=== PATIENT | female | born 1990 | race Caucasian/White ===

== ENCOUNTER 2020-12-08 19:49 | Emergency (ER) | payer SELFPAY ==
[2020-12-08 19:53] VITALS: BP 133/36; PULSE 104; RESP 16; TEMP 36.6; O2SAT 99; BMI 27.2
[2020-12-08 19:59] VITALS: BP 116/72; PULSE 88; RESP 16; TEMP 36.6; O2SAT 99
--- NOTE | 2020-12-08 20:06 | W.ED.ANIMALB ---
HPI - Animal Bite General: Chief Complaint: Animal Bite Stated Complaint: Bite by Dog Time Seen by Provider: 12/08/20 20:01 History of Present Illness: HPI narrative: Patient comes in for evaluation of right inner thigh dog bite. Patient was awoken at 2 AM this morning and went out to find her dog fighting with the neighbors dog. Patient tried to separate them and got bit to the right inner thigh. Patient denies any significant injury except for a bite wound to the right inner thigh. Patient did use some liquid bandage to it. Patient does not recall her tetanus shot. Patient has not notified normal enforcement. MD complaint: animal bite Animal: dog Description of animal: household pet Mechanism: bite Location: other (right thigh) Pain description: dull Context: animals fighting Associated symptoms: Reports wound drainage Treatments prior to arrival: wound dressing(s) (liquid bandage) Review of Systems General: Reports: 10 or more systems reviewed and unremarkable except in HPI and below Skin/Breast: Reports: other (Right thigh injury.) Physical Exam Const: COMMON NORMALS: no acute distress and patient oriented x3 GENERAL APPEARANCE: cooperative HENMT: COMMON NORMALS: normocephalic and Normal external nose present HEAD & SCALP: normal to inspection and normocephalic NOSE: Normal external nose present Eye: GENERAL EYE: appearance normal, both eyes and all related structures Neck/C-Spine: COMMON NORMALS: full ROM Chest: COMMONS NORMALS: normal inspection of the chest Resp: COMMON NORMALS: normal respiratory effort EFFORT & INSPECTION: Yes able to speak in complete sentences Cardio: COMMON NORMALS: regular rate and regular rhythm RATE: regular rate RHYTHM: regular rhythm GI: COMMON NORMALS: non-tender Extremity: NARRATIVE EXTREMITY EXAM: Area of ecchymosis approximately 8 cm with puncture lesions within the wound of the right inner thigh. Neuro: COMMON NORMALS: patient oriented x3 and moves all extremities Psych: COMMON NORMALS: mental status grossly normal and cooperative Skin: NARRATIVE SKIN EXAM: Wound to the right inner thigh. Course Vital Signs: Vital signs: Vital Signs Temperature 97.8 F 12/08/20 19:59 Pulse Rate 88 12/08/20 19:59 Respiratory Rate 16 12/08/20 19:59 Blood Pressure 116/72 12/08/20 19:59 Pulse Oximetry 99 12/08/20 19:59 MDM - Animal Bite MDM Narrative: Medical decision making narrative: Patient comes in today with injury to the right inner thigh. On exam we note bruising with punctate lesions to the right inner thigh. Patient does have a superficial laceration to the same area that has been dressed with liquid bandage. Differential diagnosis includes foreign body, laceration, need for prophylaxis tetanus, need for prophylaxis antibiotic. Patient refused vaccine for rabies at this time due to it being a dog she sees frequently and is her neighbor's dog. Patient agreed to tetanus vaccination and antibiotics for treatment. Reviewed recommendations for notifying law enforcement due to public health risk. Patient reported understanding and agreed to plan. We will continue patient on Augmentin for antibiotic prophylaxis. Discharge Plan Discharge Patient Disposition: Home Clinical Impression: Dog bite Qualifiers: Encounter type: initial encounter Qualified Code(s): W54.0XXA - Bitten by dog, initial encounter Condition: Stable Prescriptions: New Augmentin 875-125 mg tablet 1 tab PO BID Qty: 14 RF: 0 Discharge Orders: Discharge ED (Routine); Ordered 12/08/20 Ordered By: Senthil Costello Referrals: Christopher Morris MD [Primary Care Provider] - Discharge Diet: Usual diet Discharge Activity: Increase activity as tolerated Patient Instructions: Animal Bite (ED), Opioid Safety Activity Restrictions/Additional Instructions: Clean wound twice a day with mild soap and water. Use acetaminophen or ibuprofen for pain. Take antibiotic as directed for the next 7 days. Healthy diet and exercise. Follow-up with primary care as needed. Return to the ER for worsening symptoms or new concerns. Coding Level of Care Code ED Chief Warden for Dinorah Simpson
[2020-12-08] MEDS: tetanus-dipt-pertussis 0.5 mL SDV IM (20:25)
[2020-12-08] MEDS: amoxicillin-clav 875-125 mg Tablet 1 TAB PO (20:25)
[2020-12-08 20:26] VITALS: BP 116/72; PULSE 88; RESP 16; TEMP 36.6; O2SAT 99
== END 2020-12-08 20:27 | disposition home or self-care (01) ==
LOC: ER 20:14
PROVIDERS: Emergency Provider Nurse Practitioner Family; PCP Family Medicine
DX: S71.151A Open bite, right thigh, initial encounter (principal); W54.0XXA Bitten by dog, initial encounter; Z23 Encounter for immunization
CPT/HCPCS: 90471; 90715; 99283